=== PATIENT | female | born 1960 | race Caucasian/White ===

== ENCOUNTER → 2023-05-26 13:35 | Outpatient (REF) | payer BC, SELFPAY | LOC: HWRAD 13:35 | PROVIDERS: ATTENDING PHYSICIAN Nurse Practitioner Adult Health | DX: Z78.0 Asymptomatic menopausal state (principal); Z12.31 Encounter for screening mammogram for malignant neoplasm of breast | CPT/HCPCS: 77063; 77067; 77080 ==

== ENCOUNTER → 2023-08-12 09:56 | Outpatient (REF) | payer BC, SELFPAY | LOC: RCS 09:56 | PROVIDERS: ATTENDING PHYSICIAN Nurse Practitioner Adult Health | DX: R00.2 Palpitations (principal) | CPT/HCPCS: 93225; 93226 ==